=== PATIENT | female | born 1940 | race Caucasian/White ===

== ENCOUNTER 2017-08-18 12:56 | Day surgery (SDC) | payer MEDICARE, OTHER ==
[~2017-08-18] VITALS: Ht 157.5 cm; Wt 75.5 kg
[~2017-08-18 12:56] MED LIST: Advil200 M1; Aspir 8181 MG; BENA20 PO; BIOTIN2500 MCG; CHOL10002; Coq-10100 MG; Daily Multiple1 EACH; FISH1000; GLUC500; GLUCOSA-CHOND-1 EACH; LOVA40 PO; PRAV20 PO; PROBIOTIC1 EAC1
[2017-08-18] MEDS ORDERED: SIMV40 (13:39)
== END 2017-08-18 14:27 | disposition home or self-care (01) ==
LOC: ORSCSDS 12:56
PROVIDERS: Anesthesiology
PROC: 3E0R33Z Introduction of Anti-inflammatory into Spinal Canal, Percutaneous Approach (ICD-10-PCS; principal; 2017-08-18 14:00)
DX: M96.1 Postlaminectomy syndrome, not elsewhere classified (principal); I10 Essential (primary) hypertension; E78.00 Pure hypercholesterolemia, unspecified; Z79.899 Other long term (current) drug therapy
CPT/HCPCS: J1040

== ENCOUNTER → 2017-10-14 | Outpatient (CLI) | payer MEDICARE, OTHER ==
[~2017-10-14] MED LIST changes: +SIMV40; +Ultram50 MG PO
== END | disposition home or self-care (01) ==
LOC: LAB 11:03 → LAB SHORT 11:03
DX: D22.5 Melanocytic nevi of trunk (principal)
CPT/HCPCS: 88305

== ENCOUNTER 2018-01-20 07:04 | Day surgery (SDC) | payer MEDICARE, OTHER ==
[~2018-01-20] VITALS: Ht 157.5 cm; Wt 75.6 kg
[~2018-01-20 07:04] MED LIST changes: -Ultram50 MG PO
== END 2018-01-20 08:15 | disposition home or self-care (01) ==
LOC: ORSCSDS 07:04
PROVIDERS: Anesthesiology
PROC: 3E0R33Z Introduction of Anti-inflammatory into Spinal Canal, Percutaneous Approach (ICD-10-PCS; principal; 2018-01-20 08:00)
DX: M96.1 Postlaminectomy syndrome, not elsewhere classified (principal); M51.16 Intervertebral disc disorders with radiculopathy, lumbar region; I10 Essential (primary) hypertension; E78.00 Pure hypercholesterolemia, unspecified; G47.33 Obstructive sleep apnea (adult) (pediatric); Z79.899 Other long term (current) drug therapy
CPT/HCPCS: J1040

== ENCOUNTER 2018-04-11 16:12 | Emergency (ER) | payer MEDICARE, OTHER ==
[~2018-04-11] VITALS: Ht 157.5 cm; Wt 72.6 kg
[2018-04-11] MEDS ORDERED: Ultram50 MG PO (17:13)
== END 2018-04-11 17:35 | disposition home or self-care (01) ==
LOC: ER 16:12
DX: M17.11 Unilateral primary osteoarthritis, right knee (principal); Z79.899 Other long term (current) drug therapy; I10 Essential (primary) hypertension; E78.00 Pure hypercholesterolemia, unspecified
CPT/HCPCS: 73562-RT; 99283-25

== ENCOUNTER → 2018-04-18 | Outpatient (CLI) | payer MEDICARE, OTHER ==
[~2018-04-18] MED LIST changes: +Ultram50 MG PO
== END | disposition home or self-care (01) ==
LOC: PLD 08:14 → LAB SHORT 08:14
DX: L72.0 Epidermal cyst (principal)
CPT/HCPCS: 88305

== ENCOUNTER → 2018-08-15 | Outpatient (CLI) | payer MEDICARE, OTHER | LOC: PLD 10:42 → LAB SHORT 10:42 | DX: D48.5 Neoplasm of uncertain behavior of skin (principal) | CPT/HCPCS: 88305 ==

== ENCOUNTER → 2018-11-30 | Outpatient (CLI) | payer MEDICARE, OTHER | END | disposition home or self-care (01) | LOC: PLD 10:01 → LAB SHORT 10:01 | DX: D48.5 Neoplasm of uncertain behavior of skin (principal) | CPT/HCPCS: 88305 ==

== ENCOUNTER 2019-01-11 12:17 | Day surgery (SDC) | payer MEDICARE, OTHER ==
[~2019-01-11] VITALS: Ht 157.5 cm; Wt 65.2 kg
== END 2019-01-11 14:01 | disposition home or self-care (01) ==
LOC: ORSCSDS 12:17
PROVIDERS: Anesthesiology
PROC: 3E0R33Z Introduction of Anti-inflammatory into Spinal Canal, Percutaneous Approach (ICD-10-PCS; principal; 2019-01-11 13:30)
DX: M96.1 Postlaminectomy syndrome, not elsewhere classified (principal); M51.16 Intervertebral disc disorders with radiculopathy, lumbar region; Z79.899 Other long term (current) drug therapy
CPT/HCPCS: J1040

== ENCOUNTER → 2019-08-16 | Outpatient (CLI) | payer OTHER | LOC: LAB SHORT 11:30 → LAB EV 11:30 | DX: R30.0 Dysuria (principal); R30.9 Painful micturition, unspecified | CPT/HCPCS: 87077; 87086; 87186 ==

== ENCOUNTER 2021-07-07 10:04 | Day surgery (SDC) | payer OTHER ==
[~2021-07-07] VITALS: Ht 157.5 cm; Wt 72.8 kg
[~2021-07-07 10:04] MED LIST changes: +Apple Cider Vi300 MG PO; -Daily Multiple1 EACH; +Daily Multiple1 EACH PO; +TURMERIC500 M2 PO; +VITAMIN D310 MC4 PO
== END 2021-07-07 11:30 | disposition home or self-care (01) ==
LOC: ORSCSDS 10:04
PROVIDERS: Anesthesiology
PROC: 3E0R33Z Introduction of Anti-inflammatory into Spinal Canal, Percutaneous Approach (ICD-10-PCS; principal; 2021-07-07 14:45)
DX: M54.12 Radiculopathy, cervical region (principal); I10 Essential (primary) hypertension; E78.00 Pure hypercholesterolemia, unspecified; Z79.899 Other long term (current) drug therapy
CPT/HCPCS: J1040; J2250; J3010; J7040

== ENCOUNTER 2021-08-20 08:20 | Day surgery (SDC) | payer OTHER ==
[~2021-08-20] VITALS: Ht 154.9 cm; Wt 70.9 kg
[~2021-08-20 08:20] MED LIST changes: +ACET500 PO
--- NOTE | 2021-08-20 16:22 | NUR ---
PATIENT CAME BACK FROM PACU TODAY 08/20/20 AT 1300. POD 0 RIGHT TOTAL KNEE PATIENT IS ALERT AND ORIENTED X4. VS ARE WNL AND IS ON RA. PATIENT DENIES PAIN AT THIS TIME DUE TO HER HAVING A SPINAL DURING PROCEDURE. PATIENTS NUMB FROM DERMATOME L1 AND DOWN. SHE IS ABLE TO WIGGLE FINGERS AND TOES AND LIFT HER LEGS WHEN ASKED. SHE IS TOLERATING A SMALL AMOUNT OF PO INTAKE. CALL LIGHT WITHIN REACH. AT BEDSIDE. RIGHT KNEE HAS JOSEPH WRAP AND AQUACEL C/D/I.
--- NOTE | 2021-08-20 17:14 | NUR ---
SHIFT SUMMARY: POD 0 RIGHT TOTAL KNEE NO SIGNIFICANT CHANGES SINCE COMING BACK FROM PACU. PATIENT IS ALERT AND ORIENTED X4. SHE WAS ABLE TO WORK WITH PT TODAY AND AMBULATE THE HALLWAYS. PAIN IS MANAGED WITH PO TYLENOL AT THIS TIME. PATIENT URINATED A LITTLE BIT WITH PT BUT NOT A LOT. SHE IS TOLERATING PO INTAKE AND HAS ACTIVE BOWEL TONES. CALLS APPROPRIATELY. CALL LIGHT WITHIN REACH. RIGHT KNEE AQUACEL AND JOSEPH WRAP IS C/D/I. THE PLAN IS TO WORK WITH PT/OT TOMORROW AND POSSIBLY GO HOME IF APPROPRIATE.
[2021-08-21 04:48] LABS: BASOPHILS ABSOLUTE AUTO 0.01 K/mm3 (0.00-0.23); BASOPHILS PERCENT AUTO 0 % (0-2); EOSINOPHILS PERCENT AUTO 0 % (0-6); Hematocrit 31.3 % (33.0-51.0); Hemoglobin 10.4 g/dL (11.5-16.0); IMMATURE GRAN ABSOLUTE AUTO 0.05 K/mm3 (0.00-0.10); IMMATURE GRAN PERCENT AUTO 0 % (0-1); LYMPHOCYTES ABSOLUTE AUTO 2.09 K/mm3 (0.84-5.20); LYMPHOCYTES PERCENT AUTO 16 % (21-46); MONOCYTES ABSOLUTE AUTO 0.94 K/mm3 (0.16-1.47); MONOCYTES PERCENT AUTO 7 % (4-13); Mean Corpuscular HGB 32.5 pg (26.0-34.0); Mean Corpuscular HGB Conc 33.2 g/dL (31.5-36.5); Mean Corpuscular Volume 98 fL (80-100); Mean Platelet Volume 10.4 fL (9.1-12.4); NEUTROPHILS ABSOLUTE AUTO 9.87 K/mm3 (1.96-9.15); NEUTROPHILS PERCENT AUTO 76 % (41-73); Platelet Count 184 K/mm3 (150-400); RDW Coefficient Variation 12.7 % (11.7-14.2); White Blood Cell Count 12.96 K/mm3 (4.00-11.30)
[2021-08-21 05:21] LABS: Anion Gap 7 mmol/L (6-16); Blood Urea Nitrogen 17 mg/dL (8-24); Bun/Creatinine Ratio 23.3 (12.0-20.0); CO2, Blood 24 mmol/L (21-32); Calcium, Blood 9.1 mg/dL (8.5-10.1); Chloride, Blood 108 mmol/L (98-108); Creatinine, Blood 0.73 mg/dL (0.40-1.00); Glomerular Filtration Rate >60 (60-); Glucose, Blood 109 mg/dL (70-99); Sodium, Blood 139 mmol/L (136-145)
--- NOTE | 2021-08-21 06:42 | NUR ---
SHIFT SUMMARY: PT POD#1 FOR A RIGHT TKA. AQUACEL AND JOSEPH WRAP DRESSING C/D/I WITH POLAR PACK IN PLACE. PT OOB SEVERAL TIMES WITH SBA+FWW/GB. TOLERATING ACTIVITY WELL. PAIN WELL MANAGED WITH TORADOL AND TYLENOL THIS SHIFT PER EMAR. MEDICATED WITH 5MG OXY ONCE. RATING PAIN 2-3/10 ON PAIN SCALE. PT VOIDING WELL AND TOLERATING PO. PLAN FOR PHYSICAL THERAPY AND POSSIBLE DISCHARGE HOME.
[2021-08-21] MEDS ORDERED: Aspir 8181 MG PO (10:33)
[2021-08-21] MEDS ORDERED: OXYC5 PO (10:34)
[2021-08-21] MEDS ORDERED: PROM25 PO (10:35)
--- NOTE | 2021-08-21 11:39 | NUR ---
DC'D HOME, DC INSTRUCTIONS GIVEN, VERBALIZED UNDERSTANDING, IV DC'D, CATH INTACT.
== END 2021-08-21 11:33 | disposition home or self-care (01) ==
LOC: ORSCMMR 08:20 → ORD 10:00 → ORSCMMR 10:00 → SURS 14:44 → ORSCMMR 08-21 11:33
PROVIDERS: Orthopaedic Surgery
PROC: 8E0YXBZ Computer Assisted Procedure of Lower Extremity (ICD-10-PCS; principal; 2021-08-20 10:00)
PROC: 0SRC0J9 Replacement of Right Knee Joint with Synthetic Substitute, Cemented, Open Approach (ICD-10-PCS; principal; 2021-08-20 10:00)
DX: M17.11 Unilateral primary osteoarthritis, right knee (principal); I10 Essential (primary) hypertension; G47.33 Obstructive sleep apnea (adult) (pediatric); Z79.899 Other long term (current) drug therapy
CPT/HCPCS: 36415; 73560-RT; 80048; 83735; 85025; 97110; 97116; 97162; 97530; A9270; C1713; C1776; J0171; J0690; J0735; J1170; J1885; J2250; J2795; J7120